=== PATIENT | female | born 1955 | race Caucasian/White ===

== ENCOUNTER 2021-02-08 08:47 | Outpatient (CLI) | payer MEDICARE, SELFPAY ==
--- NOTE | ~2021-02-08 | DEXA_ITS ---
Bone Density Report Name: Belle Goyal Age: 65 Sex: Female Ethnicity: White Date of : 1955 Indication: osteopenia; monitoring treatment; height loss; prior fracture; Referring Provider: Jonel, Luh Study: Bone densitometry was performed. Exam Date: February 08, 2021 Accession number: [id number] Bone Density: Region BMD T-score Z-score Classification AP Spine (L1-L4) 0.840 -1.9 -0.1 Osteopenia Femoral Neck (Left) 0.540 -2.8 -1.2 Osteoporosis Total Hip (Left) 0.617 -2.7 -1.4 Osteoporosis Total Hip Bilateral Avg 0.668 -2.3 -1.0 Osteopenia Femoral Neck (Right) 0.581 -2.4 -0.9 Osteopenia Total Hip (Right) 0.718 -1.8 -0.6 Osteopenia World Health Organization criteria for BMD impression classify patients as: Normal (T-score at or above -1.0), Osteopenia (T-score between -1.0 and -2.5), or Osteoporosis (T-score at or below -2.5). 10-year Fracture Risk: FRAX not reported because: Some T-score for Spine Total or Hip Total or Femoral Neck at or below -2.5 Treated for osteoporosis Previous Exams: Region Exam Age BMD T-score BMD Change BMD Change Date g/cm2 vs Baseline vs Previous AP Spine(L1-L4) 02/08/2021 65 0.840 -1.9 0.100(13.5%)* -0.039(-4.4%)* 03/07/2019 63 0.879 -1.5 0.139(18.8%)* 0.139(18.8%)* 03/04/2018 62 0.740 -2.8 Total Hip(Left) 02/08/2021 65 0.617 -2.7 0.014(2.3%) -0.046(-7.0%)* 03/07/2019 63 0.663 -2.3 0.060(10.0%)* 0.060(10.0%)* 03/04/2018 62 0.603 -2.8 Total Hip(Right) 02/08/2021 65 0.718 -1.8 0.016(2.3%) -0.053(-6.9%)* 03/07/2019 63 0.771 -1.4 0.069(9.9%)* 0.069(9.9%)* 03/04/2018 62 0.702 -2.0 *Denotes significance at 95% confidence level, LSC for AP Spine = 0.022 g/cm2, LSC for Total Hip = 0.027 g/cm2 Clinical Information Provided by Patient: Has had a low trauma fracture Is being treated for osteoporosis Has used the following medications: Fosamax (i.e. alendronate), Vitamin D, Calcium Patient maximum height was 69 Menopause Age: 46 Drinks caffeinated beverages Onset of menses at age 15 Number of children 2 Impression: The patient has established osteoporosis, based on the Left Femoral Neck T-score and the existence of a prior fracture. The patient has risk factors, including: previous fracture. The BMD for the AP Spine(L1-L4) decreased, changing by -4.4% since the last DXA exam. The BMD for the Total Hip(Left) decreased, changing by -7.0% since the last DXA exam. The BMD for
== END 2021-02-08 08:48 | disposition home or self-care (01) ==
LOC: ANHIMG 08:49
PROVIDERS: PCP Nurse Practitioner Family; Visit Provider Nurse Practitioner Family
DX: M81.0 Age-related osteoporosis without current pathological fracture (principal); M85.89 Other specified disorders of bone density and structure, multiple sites
CPT/HCPCS: 77080

== ENCOUNTER 2023-10-02 10:25 | Outpatient (CLI) | payer MEDICARE, SELFPAY ==
--- NOTE | ~2023-10-02 | US_ITS ---
EXAMINATION: US renal BI DATE: 10/02/2023 10:50 INDICATION: Dysuria TECHNIQUE: Multiple grayscale and Doppler ultrasound images of the kidneys were obtained. COMPARISON: None. FINDINGS: The right kidney measures 10.3 x 3.8 x 5.2 cm. The left kidney measures 11.8 x 5.6 x 4.9 cm . The kidneys demonstrate normal parenchymal echogenicity. There is no hydronephrosis. The bladder de monstrates to soft tissue masses. One measures 4.3 x 2.7 x 3.6 cm and the other 1.0 x 1.0 x 1.2 cm. T here is internal vascularity in both masses. IMPRESSION: 1. Bladder masses suspicious for urothelial carcinoma. Urologic evaluation and direct visualization a re recommended. Reviewed, dictated and finalized at location F. [facility] IMPRESSION: 1. Bladder masses suspicious for urothelial carcinoma. Urologic evaluation and direct visualization are recommended.
== END 2023-10-02 10:26 ==
LOC: MICIMG 10:27
PROVIDERS: PCP Family Medicine; Visit Provider Family Medicine
DX: R30.0 Dysuria (principal); N32.9 Bladder disorder, unspecified
CPT/HCPCS: 76775

== ENCOUNTER → 2023-11-04 10:05 | Outpatient (CLI) | payer MEDICARE, SELFPAY ==
--- NOTE | ~2023-11-04 | CT_ITS ---
EXAMINATION: CT abdomen pelvis wo/w con DATE: 11/04/2023 10:49 INDICATION: Neoplasm of bladder. TECHNIQUE: Computed tomography (CT) of the abdomen and pelvis was performed without and with intraven ous contrast using a total of 130 mL Omnipaque-350 intravenous contrast with a double-bolus technique for simultaneous opacification of the renal parenchyma and renal collecting system. Automated exposu re control and iterative reconstruction technique were employed. The dose-length product was 1052.64 mGy-cm. COMPARISON: Ultrasound kidneys 10/02/23 FINDINGS: The visualized portions of the lung bases demonstrate mild atelectasis. Calcified right lung nodules and calcified right hilar lymph nodes are consistent with old granulomatous disease. No pleural effus ion. The heart size is normal. No pericardial effusion. There is a 6 mm cyst in the liver. The gallbl adder is normal. Calcifications in the spleen are consistent with old granulomatous disease. The panc reas, adrenal glands, and kidneys are normal. Right ureter is not opacified in its distal half. Left ureter is well opacified and is normal. There is a 5.2 cm enhancing mass with calcifications in the b ladder on the right. There are other masses in the bladder measuring up to 10 mm. There are no dilate d loops of bowel. The appendix is normal. There is calcified atherosclerosis of the aorta and many of the other arteries. There are chronic compression fractures of T11 and T12. There are chronic burst fractures of L1, L3, and L4. There is mild thoracic and lumbar spondylosis. IMPRESSION: 1. 5.2 cm enhancing mass in the bladder on the right, consistent with urothelial carcinoma. Smaller b ladder masses may be hematoma and/or urothelial carcinoma. 2. Right ureter not opacified distally and not well evaluated. Reviewed, dictated and finalized at location E. L FRAMER IMPRESSION: 1. 5.2 cm enhancing mass in the bladder on the right, consistent with urothelia l carcinoma. Smaller bladder masses may be hematoma and/or urothelial carcinoma . 2. Right ureter not opacified distally and not well evaluated.
[2023-11-04 10:26] LABS: Estimated Glomerular Filt Rate > 60
== END ==
PROVIDERS: PCP Nurse Practitioner Family; Visit Provider Urology
DX: D41.4 Neoplasm of uncertain behavior of bladder (principal)
CPT/HCPCS: 74178; Q9967

== ENCOUNTER 2024-09-16 13:28 | Outpatient (CLI) | payer MEDICARE, SELFPAY ==
--- NOTE | ~2024-09-16 | DEXA_ITS ---
Bone Density Report Name: MALCOLM MCGILL Age: 69 Sex: Female Ethnicity: White Date of : 1955 Indication: postmenopausal osteoporosis; monitoring treatment; height loss; Referring Provider: GENNARO, CESIA Jackman Study: Bone densitometry was performed. Exam Date: September 16, 2024 Accession number: [id number] Bone Density: Region BMD T-score Z-score Classification AP Spine(L1-L4) 0.846 -1.8 0.2 Osteopenia Femoral Neck (Left) 0.570 -2.5 -0.8 Osteoporosis Total Hip (Left) 0.770 -1.4 0.0 Osteopenia Femoral Neck (Right) 0.643 -1.9 -0.1 Osteopenia Total Hip (Right) 0.759 -1.5 0.0 Osteopenia Total Hip Mean 0.765 -1.5 0.0 Osteopenia World Health Organization criteria for BMD impression classify patients as: Normal (T-score at or above -1.0), Osteopenia (T-score between -1.0 and -2.5), or Osteoporosis (T-score at or below -2.5). 10-year Fracture Risk: FRAX not reported because: Some T-score for Spine Total or Hip Total or Femoral Neck at or below -2.5 Treated for osteoporosis Previous Exams: Region Exam Age BMD T-score BMD Change BMD Change Date g/cm2 vs Baseline vs Previous AP Spine (L1-L4) 09/16/2024 69 0.846 -1.8 0.106 (14.4%)* 0.006 (0.7%) 02/08/2021 65 0.840 -1.9 0.100 (13.5%)* -0.039 (-4.4%) 03/07/2019 63 0.879 -1.5 0.139 (18.8%)* 0.139 (18.8%)* 03/04/2018 62 0.740 -2.8 Total Hip(Left) 09/16/2024 69 0.770 -1.4 0.167 (27.6%)* 0.153 (24.8%)* 02/08/2021 65 0.617 -2.7 0.014 (2.3%) -0.046 (-7.0%) 03/07/2019 63 0.663 -2.3 0.060 (10.0%)* 0.060 (10.0%)* 03/04/2018 62 0.603 -2.8 Total Hip(Right) 09/16/2024 69 0.759 -1.5 0.057 (8.1%)* 0.041 (5.7%)* 02/08/2021 65 0.718 -1.8 0.016 (2.3%) -0.053 (-6.9%) 03/07/2019 63 0.771 -1.4 0.069 (9.9%)* 0.069 (9.9%)* 03/04/2018 62 0.702 -2.0 *Denotes significance at 95% confidence level, LSC for AP Spine = 0.022 g/cm2, LSC for Total Hip = 0.027 g/cm2 Clinical Information Provided by Patient: Is being treated for osteoporosis Has used the following medications: Fosamax (i.e. alendronate), Vitamin D, Calcium Patient maximum height was 68 Menopause Age: 46 No regular weight bearing exercise Drinks caffeinated beverages Onset of menses at age 14 Number of children 2 Impression: The patient has osteoporosis, based on the Left Femoral Neck T-score. No significant bone loss was observed. Discussion: PATIENT UNDER TREATMENT WITH NO SIGNIFICANT BMD LOSS SINCE LAST EXAM. In an untreated patient, BMD typically declines with age. A lack of decline or gain is usually a sign that treatment is efficacious and fracture risk is reduced. It is important to ask patients whether they are taking their medications and to encourage continued and appropriate compliance with their osteoporosis therapies to reduce fracture risk. It is also important to review their risk factors and encourage appropriate calcium and vitamin D intakes, exercise, fall prevention and other lifestyle measures. Follow-Up: Consider a repeat BMD and Vertebral Fracture Assessment (VFA) exam in 2 years or sooner if medically necessary, to reassess this patient's status. Reported by: KAYLA on 09/16/2024 2:09:00 PM. Reviewed, dictated and finalized at location [facility]
== END 2024-09-16 13:29 | disposition home or self-care (01) ==
LOC: ANHIMG 13:30
PROVIDERS: PCP Nurse Practitioner Family; Visit Provider Nurse Practitioner Family
DX: Z78.0 Asymptomatic menopausal state (principal); M85.89 Other specified disorders of bone density and structure, multiple sites; M81.0 Age-related osteoporosis without current pathological fracture
CPT/HCPCS: 77080